=== PATIENT | female | born 1965 | race Hispanic/Latino ===

== ENCOUNTER → 2023-03-17 | Outpatient (CLI) | payer MEDICARE ==
[2023-03-17 16:22] LABS: CREATININE 0.9 mg/dL (0.5-1.5); POTASSIUM 4.2 mmol/L (3.5-5.1)
== END | disposition home or self-care (01) ==
LOC: LAB 15:32
PROVIDERS: ATTEND Internal Medicine
DX: I48.0 Paroxysmal atrial fibrillation (principal); Z79.01 Long term (current) use of anticoagulants
CPT/HCPCS: 36415; 80048

== ENCOUNTER 2024-02-08 01:43 | Emergency (ER) | payer MEDICARE ==
[~2024-02-08] VITALS: Ht 157.5 cm; Wt 132.0 kg
--- NOTE | 2024-02-08 02:29 | ERN ---
ED Note History of Present Illness Stated Complaint: C/O PAIN TO RT BIG TOE, AND RT ANKLE Chief Complaint: Ankle Problem Time Seen by MD: 01:52 Dictation: This is a morbidly obese female 59 years old presented to the emergency room with complaints of right foot pain and big toe pain. She stated that this has been going on for 4-5 days and she has been miserable [id number] Tylenol and Motrin have not given any relief. She has had a previous history of ankle surgery with screws. No history of any fall or obvious injury to the ankle. Afebrile heart rate is 65 respirations 20 blood pressure 154/79 pulse oximetry 97% on room air Chronic medical problems include hypertension arthritis and atrial fibrillation. Allergies: Coded Allergies: No Known Allergies (Unverified Allergy, Unknown, 02/08/24) Home Meds Active Scripts Indomethacin (Indocin) 25 Mg Cap, 1 CAP PO TID for arthritis for 10 Days, #30 CAP 0 Refills with food Prov:THERESA COMBS MD 02/08/24 Colchicine (Colchicine) 0.6 Mg Capsule, 1 CAP PO TIDMEALS for 30 Days, #60 CAP 0 Refills Prov:THERESA COMBS MD 02/08/24 Past Medical History Past Medical History: A-Fib, Arthritis, Hypertension Surgical History: Other Surgical History Other: RT ANKLE SX Additional History Comments: Family history is positive for gouty arthritis in mother and brother Social History: Negative History: Not Applicable RN Note Reviewed/Agreed w/PFSH: Yes Review of System Dictation As described in the history of present illness Constitutional: Negative for fever,chills, and weight loss Eyes: Negative for injury, pain,redness, and discharge ENT: Negative for injury,pain or swelling Cardiovascular: Negative for chest pain, palpitations, and edema Respiratory: Negative for shortness of breath, cough, and wheezing, Abdomen/GI: Negative for abdominal pain, nausea, vomiting, diarrhea, and constipation Back: Negative for injury and pain : Negative for injury, bleeding and discharge MS/Extremity: Negative for injury and deformity Skin: Negative for rash, and discoloration Neuro: Negative for headache, weakness, numbness, tingling, and seizure Psych: Negative for suicide ideation, homicidal ideation, and hallucinations Initial Vital Sign VS Vital Signs Date Time Temp Pulse Resp B/P (MAP) Pulse Ox O2 Delivery O2 Flow Rate FiO2 02/08/24 01:50 98.2 65 20 154/79 98 Room Air 02/08/24 04:45 0 21 Physical Exam Dictation General: awake, alert, NAD extremely obese with a BMI of 53 Head/Face: Normocephalic, atraumatic Eyes: PERRL, EOMI, vision at baseline ENT: oral cavity clear, TMs clear, no signs of infection Neck: Trachea midline, supple, no nuchal rigidity Cardiovascular: RRR, normal S1/S2, No MRGs, no JVD Respiratory: CTAB, no respiratory distress, No rales or wheezes Abdomen: Soft, non-tender, non-distended, normal bowel sounds, no guarding or rebound. Skin: Warm, dry, normal turgor, no rash MS/Extremity: Pulses equal, no cyanosis, neurovascular intact, FROM right foot inflammation of the base of the big toe and dorsum of the foot. There is mild erythema and inflammation noted. Neuro: COAx4, GCS 15, strength 5/5, CN 2-12 intact, normal cerebellar exam, normal gait, Psych: Normal behavior, mood, and affect normal Extremities-trace edema without any palpable cords, Homans sign is negative Results (Laboratory/Radiology) Labs Reviewed?: Yes ED Course ED Course Orders Procedure Category Date Status Time Ankle Comp 3vws Rt RAD 02/08/24 Taken 01:52 Ketorolac PHA 02/08/24 Complete Tromethamine 15mg/Ml 03:00 Colchicine 0.6mg Tab PHA 02/08/24 Complete (Colchicine 0.6mg T 03:00 Current Medications Medications (Trade) Dose Ordered Sig/Harjinder Route PRN Reason Start Time Stop Time Status Last Admin Dose Admin Colchicine (COLCHicine 0.6mg TAB) 0.6 mg ONCE PO 02/08/24 03:00 02/08/24 04:47 DC 02/08/24 04:18 Ketorolac Tromethamine (toRADol) 15 mg ONCE ONCE IM 02/08/24 03:00 02/08/24 04:47 DC 02/08/24 04:19 Vital Signs Date Time Temp Pulse Resp B/P (MAP) Pulse Ox O2 Delivery O2 Flow Rate FiO2 02/08/24 04:45 98.2 68 18 148/72 98 Room Air* 0 21 02/08/24 01:50 98.2 65 20 154/79 98 Room Air We will perform diagnostic labs, imaging and administer medications according to the patient's complaint. Once the results are available, will review and personally interpreted the labs to rule out any acute life-threatening emergency the trach require immediate intervention and treatment. I will then re-evaluate the patient after treatment and diagnostic exams have return to determine whether the patient requires any further testing, can safely be discharged home or need further admission to hospital for additional treatment and evaluation. X-ray of the ankle reviewed no obvious acute fracture dislocation evidence of a metal screws from her previous surgery noted. Patient responded very well to colchicine and a dose of steroid. I updated her and her that this may likely be gouty arthritis with a flare and she verbalized full understanding. Medical Decision Making MDM MDM: Differential diagnosis: Gouty arthritis, fracture, sprain, cellulitis, Charcot joint Rationale: Tests considered and ordered secondary to shared decision making include: Previous outside records reviewed: Old ER visits. Risk of complication and/or morbidity or mortality of patient management: None Medications-Per medication reconciliation Need for hospitalization: Patient does not meet criteria for hospitalization. Need for emergency major/minor surgery: No There are no social concerns with this patient. Prescription drug management Prescriptions will include symptomatic care Patient's prior external medical records from other ER visits were reviewed by me as indicated. Prior testing and results from previous visits were reviewed. Prior tests were taken into account with medical decision making and resource utilization, independent historian/historians were used to obtain complete medical history. I independently interpreted the test that were performed, results were reviewed by me and considered findings on radiology if ordered. Medical management and examination interpretation discussions were had by me with other qualified healthcare professionals as indicated for the patient's care. Problem List Problem List: (1) Gout attack (2) Hypertension (3) Morbid obesity (4) Atrial fibrillation DX & DISP Disposition: Discharge Departure Impression: Primary Impression: Gout attack Additional Impressions: Morbid obesity, Atrial fibrillation, Hypertension Condition: Stable Scripts Indomethacin (Indocin) 25 Mg Cap 1 CAP PO TID for arthritis for 10 Days, #30 CAP 0 Refills with food Prov: THERESA COMBS MD 02/08/24 Colchicine (Colchicine) 0.6 Mg Capsule 1 CAP PO TIDMEALS for 30 Days, #60 CAP 0 Refills Prov: THERESA COMBS MD 02/08/24 Additional Instructions: Patient and the caregiver have been informed of all the diagnostic tests and the imaging conducted during the today's visit to the emergency room and has verbalized understanding of the results I have personally reviewed and inte rpreted all diagnostic exams performed here in the ER today as well as the vital signs documented by the nursing staff. The patient is now being discharged to home and should follow up with the primary care physician or the specialist as directed by the ER staff. Follow-up with primary care provider in 1 to 2 days. Take medications as directed here in the emergency room. Okay to continue home medications unless otherwise discussed during your visit in the emergency room today. Return to your nearest emergency room if symptoms worsen or if there is no improvement. Call 911 if you need immediate assistance. Take Tylenol or Motrin [id number] as needed and if no contraindications are present. Increase oral hydration. A wound culture or urine culture was ordered here in the emergency room department please follow-up with primary care provider and advise them to get repeat ports from our facility. If you had any Jefry wrap/splints that were applied here, please do not remove them until you see your primary care or specialty. List of primary care physicians provided Referrals: SELF,REFERRAL (PCP) THERESA COMBS MD Feb 08, 2024 02:29
--- NOTE | 2024-02-08 03:04 | NUR ---
CALLED IN ER LOBBY, NO ANSWER
[2024-02-08] MEDS ORDERED: INDO-16 PO (03:16)
[2024-02-08] MEDS ORDERED: COLC0.6C3 PO (03:16)
[2024-02-08] MEDS: COLCHicine 0.6 MG TABLET PO SCH (04:18)
[2024-02-08] MEDS: ketOROlac 15MG/ML VIAL (15MG/ML) IM ONE (04:19)
[2024-02-08 04:45] VITALS: BP 148/72; PULSE 68; RESP 18; TEMP 98.2; O2SAT 98
--- NOTE | 2024-02-08 10:53 | HMCIMG ---
ANKLE COMP 3VWS RT HISTORY: Severe ankle pain COMPARISON: None TECHNIQUE: 3 images of right ankle were obtained. FINDINGS: Radiopaque density is seen in the distal fibula may be related to postop changes versus foreign body. Clinical correlation is recommended. There is a calcaneal spur. There is no acute displaced fracture or dislocation. There is soft tissue swelling. Degenerative changes are seen. IMPRESSION: 1. Findings as described above.
== END 2024-02-08 04:47 | disposition home or self-care (01) ==
LOC: EDH 01:43
DX: M10.9 Gout, unspecified (principal); E66.01 Morbid (severe) obesity due to excess calories; I48.91 Unspecified atrial fibrillation; I10 Essential (primary) hypertension; M19.90 Unspecified osteoarthritis, unspecified site; Z68.43 Body mass index [BMI] 50.0-59.9, adult
CPT/HCPCS: 99284; 80061; 83036; 80048; 85025; 36415; 73610; 96372; J1885; 99283

== ENCOUNTER → 2024-02-08 | Outpatient (CLI) | payer MEDICARE ==
[~2024-02-08] MED LIST: COLC0.6C3 PO; INDO-16 PO
[2024-02-08 16:29] LABS: BASOPHILS # (AUTO) 0.05 K/uL (0.00-0.20); BASOPHILS % (AUTO) 0.6 % (0.0-5.0); EOSINOPHILS % (AUTO) 2.5 % (0.0-8.0); HEMATOCRIT 39.6 % (36-48); IMMATURE GRANULOCYTE ABSOLUTE 0.03 K/uL (0-1); LYMPHOCYTES # (AUTO) 2.8 K/uL (1.0-4.8); LYMPHOCYTES % (AUTO) 34.6 % (21.0-51.0); MEAN CORPUSCULAR HEMOGLOBIN 28.8 pg (27.0-33.0); MEAN CORPUSCULAR HGB CONC 32.3 g/dL (32.0-36.0); MEAN CORPUSCULAR VOLUME 89.2 fL (79-99); MONOCYTES # (AUTO) 0.6 K/uL (0.1-1.0); MONOCYTES % (AUTO) 6.9 % (3.0-13.0); NEUTROPHILS # (AUTO) 4.5 K/uL (1.8-7.7); PLATELET COUNT (AUTO) 199 K/uL (130-400); RED BLOOD CELL COUNT(AUTO) 4.44 MIL/uL (4.00-5.50); RED CELL DISTRIBUTION WIDTH 13.4 % (11.0-15.5); WHITE BLOOD COUNT (AUTO) 8.2 K/uL (4.8-10.8)
[2024-02-08 17:20] LABS: HEMOGLOBIN A1C 5.3 % (4.0-6.0)
[2024-02-08 17:30] LABS: CREATININE 0.9 mg/dL (0.5-1.0); POTASSIUM 4.1 mmol/L (3.5-5.1)
== END | disposition home or self-care (01) ==
LOC: LAB 14:22
PROVIDERS: ATTEND Internal Medicine
DX: I48.0 Paroxysmal atrial fibrillation (principal); E66.01 Morbid (severe) obesity due to excess calories; Z79.01 Long term (current) use of anticoagulants; Z79.899 Other long term (current) drug therapy
CPT/HCPCS: 36415; 80048; 80061; 83036; 85025